=== PATIENT | male | born 1950 | race Caucasian/White ===

== ENCOUNTER 2018-09-27 09:00 | Inpatient (IN) | payer MEDICARE, OTHER ==
[2018-09-27] MEDS ORDERED: NS 0.9% 1000 ML** 1,000 ML IV ONE (09:29)
--- NOTE | 2018-09-27 09:36 | ED ---
Abdominal Pain/Male - HPI Summary HPI Summary: Patient is a 68-year-old male with history of hypertension presenting to the ED with diffuse abdominal pain which has occurred every day 3 months. He has also been having problems with bowel movements. He states over the past 3 months, he has been needing to take prune juice to have bowel movements. Symptoms improve after having a bowel movement, but only a few hours later will return. He endorses the pain as a "pressure" to the entire abdomen, but usually worse to the right side. Symptoms are not aggravated or alleviated with eating. Denies any blood in the stool. Denies any urinary symptoms including hematuria. He denies any nausea or vomiting. He continues to pass gas. Symptoms have been present 3 months, every day, however intermittent throughout the day. Patient is a 53 year heavy every day 1 pack per day smoker. Denies alcohol use. He states he has not had a PCP for approximately 3 -4 years. He was previously prescribed lisinopril for his HTN, but discontinued taking this. He endorses a 20 pound weight loss over the past 3 months and endorses early satiety. He denies any fevers, sweats, chills. Denies CP, SOB. Denies GARAY, visual changes. - History of Current Complaint Chief Complaint: EDAbdPain Stated Complaint: STOMACH PAIN/VOMITING PER PT Time Seen by Provider: 09/27/18 09:19 Hx Obtained From: Patient Onset/Duration: Gradual Onset Timing: Constant Severity Initially: Moderate Severity Currently: Moderate Pain Intensity: 5 Pain Scale Used: 0-10 Numeric Location: Diffuse Radiates: No Character: Other: - pressure Aggravating Factor(s): Nothing Alleviating Factor(s): Nothing Associated Signs And Symptoms: Positive: Constipation, Decreased Appetite. Negative: Cough, Chest Pain, Blood in Stool, Urinary Symptoms, Vomiting, Diarrhea, Penile Discharge - Risk Factors Testicular Torsion: Negative Cardiac Risk Factors: Hypertension - Allergies/Home Medications Allergies/Adverse Reactions: Allergies Allergy/AdvReac Type Severity Reaction Status Date / Time No Known Allergies Allergy Verified 08/02/12 13:16 Home Medications: Home Medications Ibuprofen [Motrin Ib] 200 mg PO Q4HR PRN 09/27/18 [History Confirmed 09/27/18] PMH/Surg Hx/FS Hx/Imm Hx Previously Healthy: Yes Endocrine/Hematology History: Reports: Hx Diabetes - MILD, ON MEDS Cardiovascular History: Reports: Hx Hypertension - ON MEDS Denies: Other Cardiovascular Problems/Disorders Respiratory History: Denies: Other Respiratory Problems/Disorders GI History: Denies: Other GI Disorders Sensory History: Reports: Hx Contacts or Glasses - GLASSES Denies: Hx Hearing Aid Opthamlomology History: Reports: Hx Contacts or Glasses - GLASSES Neurological History: Denies: Other Neuro Impairments/Disorders - Surgical History Surgery Procedure, Year, and Place: 2008, LEN HERNIA WITH MESH, [facility] Hx Anesthesia Reactions: No - Immunization History Date of Influenza Vaccine: no Hx Pertussis Vaccination: No Immunizations Up to Date: Yes Infectious Disease History: No Infectious Disease History: Denies: Traveled Outside the [place] in Last 30 Days - Social History Occupation: Employed Full-time Lives: Alone Alcohol Use: Occasionally Hx Substance Use: No Substance Use Type: Reports: None Hx Tobacco Use: Yes Smoking Status (MU): Heavy Every Day Tobacco Smoker - 1 ppd Review of Systems Negative: Fever, Chills, Skin Diaphoresis Negative: Dental Pain, Sore Throat Negative: Palpitations, Chest Pain Negative: Shortness Of Breath, Cough Positive: Abdominal Pain - diffuse. Negative: Vomiting, Diarrhea, Nausea, Other - constipation Genitourinary: Negative Positive: no symptoms reported, see HPI Negative: Arthralgia, Myalgia Skin: Negative Negative: Headache, Weakness, Paresthesia, Numbness Psychological: Normal All Other Systems Reviewed And Are Negative: Yes Physical Exam Triage Information Reviewed: Yes Vital Signs On Initial Exam: Initial Vitals Temp Pulse Resp BP Pulse Ox 98.7 F 113 18 136/91 97 09/27/18 09:04 09/27/18 09:04 09/27/18 09:04 09/27/18 09:04 09/27/18 09:04 Vital Signs Reviewed: Yes Appearance: Positive: Well-Appearing, Well-Nourished Skin: Positive: Warm, Skin Color Reflects Adequate Perfusion Head/Face: Positive: Normal Head/Face Inspection Eyes: Positive: EOMI, Conjunctiva Clear Neck: Positive: Supple, No Lymphadenopathy Respiratory/Lung Sounds: Positive: Clear to Auscultation, Breath Sounds Present Cardiovascular: Positive: RRR, Pulses are Symmetrical in both Upper and Lower Extremities Abdomen Description: Positive: Distended, Other: - right sided firm abdomen with mass - possible enlarged liver. Negative: CVA Tenderness (R), CVA Tenderness (L), Hepatomegaly Bowel Sounds: Positive: Hypoactive Musculoskeletal: Positive: Strength/ROM Intact Neurological: Positive: Sensory/Motor Intact, Alert, Oriented to Person Place, Time Psychiatric: Positive: Normal, Affect/Mood Appropriate AVPU Assessment: Alert Diagnostics - Vital Signs Vital Signs Temp Pulse Resp BP Pulse Ox 09/27/18 09:04 98.7 F 113 18 136/91 97 - Laboratory Result Diagrams: 09/27/18 09:40 09/27/18 11:38 Lab Statement: Any lab studies that have been ordered have been reviewed, and results considered in the medical decision making process. Abdominal Pain Male Course/Dx - Course Course Of Treatment: During this patient's course of treatment, he is evaluated for a diffuse "pressure" abdominal pain which is been present intermittently over the past 3 months. He is also complaining of issues with bowel movements. He states he has needed prune juice approximately every day to have a bowel movement. Last BM 2 days ago. He endorses a 20 pound weight loss over the past 3 months. He endorses early satiety and states he has to force himself to eat and drink. Labs are obtained: Bilirubin 10.40, ALT 593, ALP 1466, lipase 525. CT abd/pelvis: IMPRESSION: #. The constellation of findings is consistent with a 4.1 x 4.4 x 4.6 cm pancreatic. carcinoma at the pancreatic head with probable local extension to the second segment of. the duodenum and probable hepatic metastasis. Associated biliary dilatation. #. Hepatic ultrasound is suggested to assess for potential feasibility of. ultrasound- guided liver metastasis biopsy for confirmation. #. Single 1.1 cm short axis enlarged celiac axis level lymph node. US obtained: IMPRESSION: Hypoechoic lesion in the right lobe of liver. Pancreatic mass in the head of the pancreas with dilated extra and intrahepatic ducts and. distended gallbladder. Sludge is noted in the gallbladder. Discussed with Dr. Kenney at 12:15p who agrees to consult. Discussed with Dr. Colmenares who will admit for further evaluation. While in the ED he was given 1 L fluids, declined pain medication. - Diagnoses Differential Diagnosis/HQI/PQRI: Other - Pancreatic cancer, metastatic disease, gallbladder sludge Provider Diagnoses: Pancreatic mass - Provider Notifications Discussed Care Of Patient With: Jose C Colmenares Instructed by Provider To: Admit As Inpatient - Critical Care Time Critical Care Time: 30-74 min Discharge - Sign-Out/Discharge Documenting (check all that apply): Patient Departure Patient Received Moderate/Deep Sedation with Procedure: No - Discharge Plan Condition: Fair Disposition: ADMITTED TO [facility] Referrals: No Primary Care Phys,NOPCP [Primary Care Provider] - - Billing Disposition and Condition Condition: FAIR Disposition: Admitted to [facility]
[2018-09-27 10:03] LABS: INR 1.1 (0.77-1.02)
[2018-09-27 10:10] LABS: ABS Basophils 0.1 10^3/ul (0-0.2); ABS Eosinophils 0 10^3/ul (0-0.6); ABS Monocytes 0.8 10^3/ul (0-0.8); ABS Neutrophils 10.6 10^3/ul (1.5-7.7); ABS Nucleated RBC 0 10^3/ul; Eosinophil % 0.4 %; Hematocrit 45 % (36-46); Hemoglobin 15.1 g/dL (14.0-18.0); Lymphocyte % 8.1 %; Mean Corpuscular HGB Conc 34 g/dL (31-36); Mean Corpuscular Hemoglobin 30 pg (27-31); Mean Corpuscular Volume 89 fL (80-94); Mean Platelet Volume 9.1 fL (7.4-10.4); Nucleated Red Blood Cells % 0; Platelet Count 315 10^3/uL (150-450); Red Blood Count 4.98 10^6 /uL (4.18-5.48); Red Cell Distribution Width 14 % (10.5-15); White Blood Count 12.4 10^3/uL (3.5-10.8)
[2018-09-27 10:16] LABS: Albumin 3.5 g/dL (3.2-5.2); Albumin/Globulin Ratio 1.1 (1-3); Alkaline Phosphatase 1466 U/L (34-104); BUN/Creatinine Ratio 15.8 (8-20); Blood Urea Nitrogen 12 mg/dL (6-24); C Reactive Protein 58.91 mg/L (<8.01); CO2 Carbon Dioxide 20 mmol/L (22-32); Calcium 9.6 mg/dL (8.6-10.3); Chloride 95 mmol/L (101-111); EGFR African American 122.7 (>60); EGFR Non-African American 101.4 (>60); Globulin 3.3 g/dL (2-4); Glucose 241 mg/dL (70-100); Magnesium 1.8 mg/dL (1.9-2.7); Sodium 130 mmol/L (135-145); Total Protein 6.8 g/dL (6.4-8.9)
[2018-09-27 10:32] LABS: ALT 593 U/L (7-52)
[2018-09-27 10:57] LABS: Anion Gap 15 mmol/L (2-11)
[2018-09-27] MEDS ORDERED: Iodixanol* (CONTRAST) 320 MG/ML 100 ML SDV IV ONE (11:14)
[2018-09-27 12:09] LABS: Urine Appearance Clear; Urine Bacteria Absent (Absent); Urine Bilirubin 1+ (Negative); Urine Blood 1+ (Negative); Urine Color Amber; Urine Glucose 3+(>=500 mg/dL) (Negative); Urine Ketones 2+ (Negative); Urine Nitrite Negative (Negative); Urine Protein 1+(30 mg/dL) (Negative); Urine Red Blood Cell 1+(3-5/hpf) (Absent); Urine Specific Gravity 1.045 (1.010-1.030); Urine Urobilinogen Negative (Negative); Urine White Blood Cell Absent (Absent)
[2018-09-27] MEDS ORDERED: Enoxaparin(*) 40 MG/0.4 ML SYR SUBCUT SCH (16:00)
[2018-09-27] MEDS ORDERED: oxyCODONE TAB* 5 MG TAB PO PRN (16:00)
[2018-09-27] MEDS ORDERED: fentaNYL* 50 MCG/ML 2 ML VIAL (100 MCG VIAL) ONE (16:21)
[2018-09-27] MEDS ORDERED: Naloxone* 0.4 MG/ML 1 ML VIAL ONE (16:21)
--- NOTE | 2018-09-27 18:25 | HP ---
ADMISSION HISTORY AND PHYSICAL: DATE OF ADMISSION: 09/27/18 PRIMARY CARE PROVIDER: None. He has not had a primary care provider in over 5 years. HEALTHCARE PROXY: He identifies his , Lois. CODE STATUS: Full. SOURCE OF INFORMATION: History obtained from interview with the patient. RELIABILITY: Fair. CHIEF COMPLAINT: Abdominal pain. HISTORY OF PRESENT ILLNESS: This is a 68-year-old man with poor medical followup, but in usual state of health until approximately 4 weeks prior to presentation, started to develop abdominal pain associated with constipation for which he had been taking prune juice with some help. He noted that his abdomen "ached." He began to develop emesis with eating that did not happen every time, but was becoming more frequent prior to presentation, not associated with hematemesis, hematochezia, or melena. He has noticed decline in his weight, but he does not weigh himself at home, so it has been subjective. He denies any night sweats, but has endorsed low energy. He endorses subjective fevers over the last several days. No cough. No headache, changes in vision, lightheadedness, loss of consciousness, shortness of breath, or chest pain. PAST MEDICAL HISTORY: Includes hypertension, prediabetes, chronic lower back pain. PAST SURGICAL HISTORY: He has had bilateral inguinal hernia repairs and an umbilical hernia repair. MEDICATIONS: No medications. ALLERGIES: No known drug allergies. FAMILY HISTORY: Notable for CVA in his father. Otherwise, no family history of cancer. 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 He has about [id number] history of smoking. Drinks about 6 alcoholic drinks per week. REVIEW OF SYSTEMS: Otherwise, all other systems reviewed and negative. PHYSICAL EXAMINATION GENERAL: Thin appearing man, older than stated age, in no apparent distress. VITAL SIGNS: 136/78, heart rate is 106, respiratory rate is 17, he is 98% on room air, T-max is 98.7. HEENT: His oropharynx is clear. His sclerae are slightly icteric. He is icteric under his tongue as well as generally yellowed skin. NECK: He has no supraclavicular, cervical, or axillary lymphadenopathy. LUNGS: Clear. HEART: He has regular rate and rhythm. ABDOMEN: Soft. He has some tenderness with deep palpation in the epigastrium. No masses appreciated. EXTREMITIES: Warm and well perfused. He has less than 2 seconds cap refill. He has no clubbing, cyanosis, or edema. NEUROLOGIC: He is alert and oriented x3. His cranial nerves II through XII are intact. PSYCHIATRIC: He has no apparent anxiety, agitation, or depression. DIAGNOSTIC STUDIES/LAB DATA: Pertinent labs are reviewed, notable for a sodium of 130, bicarb is 20, anion gap is 15, glucose is 241. Total bilirubin is 10.4, ALT is 593, AST test not performed, alk phos is 1466. CRP is 58. Lipase is 525. White blood cell count is 12.4, hemoglobin 15.1. Data reviewed. CT abdomen and pelvis, impression: Constellation of findings consistent with a 4.1 x 4.4 x 4.6 pancreatic carcinoma at the pancreatic head with probable local extension to the second segment of the duodenum and probable hepatic metastases associated with biliary dilatation. There is a single short axis and large celiac axis level lymph node. The pancreatic duct is dilated to 5 mm. There is right intra and extrahepatic biliary duct dilatation. ASSESSMENT AND PLAN: A 68-year-old man presenting with abdominal pain, jaundice and CT evidence concerning for metastatic pancreatic cancer. 1. Metastatic pancreatic cancer associated with elevated LFTs, dehydration. Oncology consultation as well as discussed with Dr. Villagran, who is reviewing hepatic ultrasound, plan on potential biopsy tomorrow. Hydrate with normal saline. Repeat LFTs in the morning to evaluate for trend of total bilirubin. Lovenox for DVT prophylaxis. 2. Hyperglycemia. Suspect in the setting of pancreatic cancer. Trend fingerstick glucose. Add insulin if necessary. 3. Dehydration in the setting of poor oral intake. Normal saline as indicated above. 4. History of hypertension. Relatively normotensive now. We will not start new medication. 5. DVT prophylaxis: Heparin subcu prior to potential biopsy and transition to Lovenox after. [id number]/[facility] #: [id number] [facility]
[2018-09-27] MEDS: NS 0.9% 1000 ML** 1,000 ML IV SCH (19:38)
[2018-09-27] MEDS: Docusate CAP* 100 MG PO SCH (21:11)
[2018-09-27] MEDS: Ondansetron INJ* 2 MG/ML VIAL IV PRN (21:11)
[2018-09-27] MEDS: Heparin VIAL(*) 5000 UNITS/ML VIAL (FIVE THOUSAND) SUBCUT SCH (21:12)
--- NOTE | 2018-09-28 01:40 | CONS ---
MEDICAL ONCOLOGY CONSULTATION NOTE: DATE OF CONSULT: 09/27/18 REASON FOR CONSULT: Pancreatic mass. HISTORY OF PRESENT ILLNESS: Mr. Mistry is a 68-year-old male who has not had a primary care physician for over 5 years. He previously was seen at [facility], but has not had a regular physician since Dr. Vivek Schwab left [facility]. He reports that he developed a back pain, which he felt was a slip disk after injuring his back in late April 2018. He took increasing doses of ibuprofen for this for many months. He felt that it did help his pain some-what, but he also then developed some heartburn and reflux without the pain being fully resolved. He stopped taking the ibuprofen approximately 2 to 3 weeks ago. He developed episodes of nausea and vomiting occasionally about 2 to 3 weeks ago , but is able to keep most meals down if he ate light foods like pasta or mashed potatoes. He developed some constipation which was helped by prune juice and also he needed to continue taking this for his bowels to continue to function properly. 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 Over the past several weeks, he has developed increasing abdominal pain which interfered with sleep, also had a dry mouth, and more recently had become dizzy and lightheaded. He has had a significant weight loss with his jeans to currently falling down, this has occurred over the past 3 to 4 months. His weight was previously 195 pounds and is now down to 167 for almost a 30- pound weight loss. He has not had any hematemesis, hematochezia, or melena. He has not had any fevers or sweats or chills. He presented to the emergency room due to ongoing abdominal pain and the nausea and vomiting. PAST MEDICAL HISTORY: Hypertension, elevated blood sugars, chronic low back pain, status post bilateral inguinal hernias, status post umbilical hernia repair. Status post brief hospitalization as a teenager with a kidney injury. No other hospitalizations or surgeries. MEDICATIONS: None since he stopped the ibuprofen. ALLERGIES: None. FAMILY HISTORY: Father with CVA. No family history of cancer in any biological relatives. His adopted son has cancer for which he is current being seen at [facility]. SOCIAL HISTORY: The patient lives with his , Lois. 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 55-pack year smoking history, 1 pack per day from teens until the present time. Alcohol of 6 drinks per week, never heavier. REVIEW OF SYSTEMS: Weight loss as discussed above. No significant respiratory symptoms. No significant neurologic symptoms. Ongoing back pain without other symptoms of arthritic or bony complaints. No significant urinary symptoms. Review of systems otherwise negative except as discussed above. PHYSICAL EXAM: A 68-year-old male in no acute distress, appearing his stated age. Vital Signs: Blood pressure 136/78, pulse 106, O2 saturation 98% on room air, afebrile. HEENT: PERRL. EOMI. Icteric sclerae. Icterus also in the mouth. No palpable cervical, supraclavicular, or axillary adenopathy. Lungs: Clear. Heart: Regular rate and rhythm without murmurs, rubs, or gallops. Abdomen: Soft, mild tenderness in the right upper quadrant and in the epigastrium. No guarding or rebound. No masses or organomegaly. Extremities: No clubbing, cyanosis, or edema. Back: No CVA or spinal tenderness. Neurologic Exam: The patient is alert and oriented x3. Cranial nerves III through XII are intact. Motor is 5/5 throughout. DIAGNOSTIC STUDIES/LAB DATA: Electrolytes: Sodium 130, potassium not obtained, chloride 95, bicarb 20, BUN 12, creatinine 0.7. LFTs are elevated with a total bilirubin of 10.4, ALT of 593, alk phos 1466, albumin 3.5. INR is at 1.10. Lipase is elevated at 582 with an upper limit normal of 82. CT scan of the abdomen and pelvis obtained on 09/27/18 reveals multiple small liver lesions, largest up to 1.8 cm in the dome of the liver, several other smaller hypodense lesions are also noted. There is a 4.1 x 4.1 x 4.6 cm hypodense hypoechoic mass in the head of the pancreas with associated atrophy of the remainder of the pancreas and ductal dilatation of the pancreatic duct at 5 mm. There is intra and extrahepatic ductal dilatation. Gallbladder is modestly distended. Adenopathy, largest lymph node is 1.1 cm in short axis in the celiac axis. No additional enlarged lymph nodes are noted. This pattern is certainly highly suspicious for metastatic pancreatic carcinoma to the liver. Ultrasound was obtained for liver biopsy. On this ultrasound, biopsies performed in uncomplicated manner of an anterior right lobe of the liver lesion. IMPRESSION: A 68-year-old male with significant weight loss, increasing abdominal pain, episodes of nausea and vomiting and now found to be significantly jaundiced with biliary ductal dilatation, liver lesions, and a 4 cm pancreatic mass obstructing the bile duct so. This is highly suspicious for metastatic adenocarcinoma of the pancreas. Biopsy was obtained today and is pending. The patient will require relief of the biliary ductal dilatation and should have a consultation with GI for a question of an ERCP. Assuming his liver function tests improve with an improvement in his bilirubin and if this turns out to be metastatic adenocarcinoma of the pancreas, he will then be a candidate for chemo-therapy in a palliative sense. This has already been explained to the patient that this would not be curative disease if this metastatic pancreatic carcinoma proven on liver biopsy. He could, however, have palliation of symptoms and prolongation of life, improvement of quality of life with chemotherapy. Although he is 68, he seems to be in otherwise good shape and possibility of using either FOLFIRINOX or Gemzar and Abraxane would be appropriate. Further recommendations will follow once the patient has had results return from his liver biopsy. In the interim, CA 19-9 tumor marker is warranted and will be ordered later today. [id number]/[facility] #: [id number] [facility]
[2018-09-28] MEDS: NS 0.9% 1000 ML** 1,000 ML IV SCH ×2 (02:32→09:41)
[2018-09-28] MEDS: Heparin VIAL(*) 5000 UNITS/ML VIAL (FIVE THOUSAND) SUBCUT SCH ×3 (05:43→21:04)
[2018-09-28 07:13] LABS: ABS Basophils 0 10^3/ul (0-0.2); ABS Eosinophils 0 10^3/ul (0-0.6); ABS Lymphocytes 0.8 10^3/ul (1.0-4.8); ABS Monocytes 0.9 10^3/ul (0-0.8); ABS Neutrophils 9.7 10^3/ul (1.5-7.7); ABS Nucleated RBC 0 10^3/ul; Eosinophil % 0.1 %; Hematocrit 40 % (36-46); Hemoglobin 13.4 g/dL (14.0-18.0); Lymphocyte % 6.7 %; Mean Corpuscular HGB Conc 33 g/dL (31-36); Mean Corpuscular Hemoglobin 30 pg (27-31); Mean Corpuscular Volume 89 fL (80-94); Mean Platelet Volume 9.3 fL (7.4-10.4); Nucleated Red Blood Cells % 0.2; Platelet Count 288 10^3/uL (150-450); Red Blood Count 4.52 10^6 /uL (4.18-5.48); Red Cell Distribution Width 14 % (10.5-15); White Blood Count 11.5 10^3/uL (3.5-10.8)
[2018-09-28 07:18] LABS: INR 1.28 (0.77-1.02)
[2018-09-28 07:22] LABS: Albumin 2.9 g/dL (3.2-5.2); BUN/Creatinine Ratio 19.7 (8-20); Calcium 8.8 mg/dL (8.6-10.3); EGFR African American 158.1 (>60); EGFR Non-African American 130.7 (>60); Globulin 2.9 g/dL (2-4); Indirect Bilirubin 2.2 mg/dL (0.3-1.0); Magnesium 1.7 mg/dL (1.9-2.7); Potassium 3.4 mmol/L (3.5-5.0); Total Bilirubin 8.6 mg/dL (0.2-1.0); Total Protein 5.8 g/dL (6.4-8.9)
[2018-09-28] MEDS ORDERED: Potassium Chlor TAB* 20 MEQ TAB.ER PO ONE (07:58)
[2018-09-28] MEDS: Docusate CAP* 100 MG PO SCH ×2 (09:42→20:13)
[2018-09-28] MEDS: Ondansetron INJ* 2 MG/ML VIAL IV PRN (12:44)
--- NOTE | 2018-09-28 12:59 | PN ---
Progress Note - Progress Note Date of Service: 09/28/18 SOAP: Subjective: [Reports that he still has intermittent aching abdominal pain. Some nausea, no vomiting. Reports some reflux which he blames on taking a laxative. ] Objective: [ Vital Signs Temp Pulse Resp BP Pulse Ox 99.1 F 86 16 146/74 97 09/28/18 11:29 09/28/18 11:29 09/28/18 11:29 09/28/18 11:29 09/28/18 11:29 Docusate Sodium (Colace Cap*) 100 mg PO BID [facility] Last Admin: 09/28/18 09:42 Dose: 100 mg Heparin Sodium (Porcine) (Heparin Vial(*)) 5,000 units SUBCUT Q8HR [facility] Last Admin: 09/28/18 05:43 Dose: 5,000 units Sodium Chloride (Ns 0.9% 1000 Ml) 1,000 mls @ 150 mls/hr IV PER RATE [facility] Stop: 09/29/18 22:39 Last Admin: 09/28/18 09:41 Dose: 150 mls/hr Ondansetron HCl (Zofran Inj*) 4 mg IV Q4H PRN PRN Reason: NAUSEA Last Admin: 09/28/18 12:44 Dose: 4 mg Oxycodone HCl (Roxycodone Tab*) 5 mg PO Q4H PRN PRN Reason: PAIN Laboratory Results - last 24 hr 09/27/18 09/28/18 09/28/18 18:07 05:38 06:16 WBC 11.5 H RBC 4.52 Hgb 13.4 L Hct 40 MCV 89 MCH 30 MCHC 33 RDW 14 Plt Count 288 MPV 9.3 Neut % (Auto) 84.8 Lymph % (Auto) 6.7 [place] % (Auto) 8.0 Eos % (Auto) 0.1 Baso % (Auto) 0.4 Absolute Neuts (auto) 9.7 H Absolute Lymphs (auto) 0.8 L Absolute Monos (auto) 0.9 H Absolute Eos (auto) 0 Absolute Basos (auto) 0 Absolute Nucleated RBC 0 Nucleated RBC % 0.2 INR (Anticoag Therapy) Sodium Potassium Chloride Carbon Dioxide Anion Gap BUN Creatinine Est GFR ( Amer) Est GFR (Non-Af Amer) BUN/Creatinine Ratio Glucose POC Glucose (mg/dL) 163 H 186 H Calcium Magnesium Total Bilirubin Direct Bilirubin Indirect Bilirubin AST ALT Alkaline Phosphatase Total Protein Albumin Globulin Albumin/Globulin Ratio 09/28/18 09/28/18 09/28/18 06:16 06:16 07:57 WBC RBC Hgb Hct MCV MCH MCHC RDW Plt Count MPV Neut % (Auto) Lymph % (Auto) [place] % (Auto) Eos % (Auto) Baso % (Auto) Absolute Neuts (auto) Absolute Lymphs (auto) Absolute Monos (auto) Absolute Eos (auto) Absolute Basos (auto) Absolute Nucleated RBC Nucleated RBC % INR (Anticoag Therapy) 1.28 H Sodium 131 L Potassium 3.4 L Chloride 100 L Carbon Dioxide 19 L Anion Gap 12 H BUN 12 Creatinine 0.61 L Est GFR ( Amer) 158.1 Est GFR (Non-Af Amer) 130.7 BUN/Creatinine Ratio 19.7 Glucose 173 H POC Glucose (mg/dL) 173 H Calcium 8.8 Magnesium 1.7 L Total Bilirubin 8.60 H D Direct Bilirubin 6.40 H Indirect Bilirubin 2.2 H AST 402 H ALT 463 H Alkaline Phosphatase 1298 H Total Protein 5.8 L Albumin 2.9 L Globulin 2.9 Albumin/Globulin Ratio 1.0 09/28/18 11:53 WBC RBC Hgb Hct MCV MCH MCHC RDW Plt Count MPV Neut % (Auto) Lymph % (Auto) [place] % (Auto) Eos % (Auto) Baso % (Auto) Absolute Neuts (auto) Absolute Lymphs (auto) Absolute Monos (auto) Absolute Eos (auto) Absolute Basos (auto) Absolute Nucleated RBC Nucleated RBC % INR (Anticoag Therapy) Sodium Potassium Chloride Carbon Dioxide Anion Gap BUN Creatinine Est GFR ( Amer) Est GFR (Non-Af Amer) BUN/Creatinine Ratio Glucose POC Glucose (mg/dL) 174 H Calcium Magnesium Total Bilirubin Direct Bilirubin Indirect Bilirubin AST ALT Alkaline Phosphatase Total Protein Albumin Globulin Albumin/Globulin Ratio Exam: Gen: Relatively well appearing 68 yo male in NAD, some smell of urine Eyes: mild icterus Skin: mild jaundice] Assessment: [68 yo male admitted with abd pain and jaundice with evidence of new metastatic pancreatic cancer, biopsy pending.] Plan: [1. Suspected pancreatic CA - appears metastatic based on imaging findings - would likely benefit from ERCP with biliary stent placement, GI consult pending - biopsy results pending Dispo: per hospitalist group, would benefit from ERCP this admission if possible. Will coordinate further outpatient oncology follow up ]
--- NOTE | 2018-09-28 14:19 | CONS ---
GASTROENTEROLOGY CONSULT: DATE OF CONSULT: 09/28/18 REFERRING PHYSICIANS: Dr. Kristofer Kenney, Dr. Yayo Donis. REASON FOR CONSULTATION: Jaundice HISTORY: This 68-year-old man has had a month of increasing abdominal pain and some sporadic vomiting. He has lost some weight. As he has not had a regular physician in a number of years, he came to the emergency room directly. In the ER, he was found to be jaundiced, though the rest of the exam negative and vital signs normal. His bilirubin was 10.4, ALT 593 alk phos over a 1200. CT scan showed a pancreatic head mass and mets to the liver. A CT-guided biopsy was arranged that very day. PAST MEDICAL HISTORY: 1. Hypertension. 2. Chronic low back pain. 3. Status post bilateral inguinal hernia repairs, 2012. 4. Status post umbilical hernia repair. 5. Chronic smoker. MEDICATIONS: Ibuprofen up until a month ago when he stopped because of burning in his stomach. ALLERGIES: None. FAMILY HISTORY: His father of a CVA. There is no family history of cancer that he is aware of. SOCIAL HISTORY: He is and worked for the [employer] for 21 years and then for [employer]. He has a 55- pack-year smoking history and still smokes. He has 1 alcoholic drink per day. REVIEW OF SYSTEMS: He denies any history of cardiac problems or pulmonary disease overtly. No history of syncope, seizures, prior jaundice, hepatitis, acute pancreatitis. He has never had a colonoscopy. There is no history of medical renal disease. PHYSICAL EXAM: He is a jaundiced, slender man with a gravely smoker's voice, in no distress. HEENT exam is otherwise unremarkable. Lungs show diminished breath sounds, but are symmetric. Heart sounds are normal. The abdomen is symmetric with normal bowel sounds, soft, and nontender. There is iodoform in the right upper quadrant from the liver biopsy. Rectal: Deferred. Extremities show no edema. DIAGNOSTIC STUDIES/LAB DATA: CBC on admission, hemoglobin 15.1, hematocrit 45, MCV 89, platelets 315. CT scan - reviewed with the radiologist and there is an air accumulation in the lumen of the duodenum and possibly a duodenal diverticulum. 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 Tissue type is most likely adenocarcinoma, but is yet to be established. Malignancy is yet to be absolutely confirmed. At the moment , histology from the needle is pending. An ERCP will be arranged and a stent hopefully placed. The duodenal wall infiltration predicts a more difficult than average situation. Informed consent was obtained and a detailed discussion assisted by a diagram. [id number]/[facility] #: [id number] KACIE
--- NOTE | 2018-09-28 15:35 | PN ---
Subjective Date of Service: 09/28/18 Interval History: Seen this am, nausea that was improved with zofran. Abdominal discomfort described as his belly feels hollow Objective Active Medications: Docusate Sodium (Colace Cap*) 100 mg PO BID [facility] Last Admin: 09/28/18 09:42 Dose: 100 mg Heparin Sodium (Porcine) (Heparin Vial(*)) 5,000 units SUBCUT Q8HR [facility] Last Admin: 09/28/18 14:21 Dose: Not Given Sodium Chloride (Ns 0.9% 1000 Ml) 1,000 mls @ 150 mls/hr IV PER RATE [facility] Stop: 09/29/18 22:39 Last Admin: 09/28/18 09:41 Dose: 150 mls/hr Ondansetron HCl (Zofran Inj*) 4 mg IV Q4H PRN PRN Reason: NAUSEA Last Admin: 09/28/18 12:44 Dose: 4 mg Oxycodone HCl (Roxycodone Tab*) 5 mg PO Q4H PRN PRN Reason: PAIN Vital Signs - 8 hr 09/28/18 09/28/18 09/28/18 07:39 08:00 11:29 Temperature 99.5 F 99.1 F Pulse Rate 96 86 Respiratory 16 18 16 Rate Blood Pressure 121/50 146/74 (mmHg) O2 Sat by Pulse 97 97 Oximetry 09/28/18 13:45 Temperature 97.1 F Pulse Rate 83 Respiratory 19 Rate Blood Pressure 140/65 (mmHg) O2 Sat by Pulse 98 Oximetry Oxygen Devices in Use Now: None Appearance: sitting up in bed, NAD Eyes: PERRLA, - - mildly icteric pupils Ears/Nose/Mouth/Throat: NL Teeth, Lips, Gums, Clear Oropharnyx Neck: NL Appearance and Movements; NL JVP, Trachea Midline Respiratory: Symmetrical Chest Expansion and Respiratory Effort, Clear to Auscultation Cardiovascular: RRR Abdominal: NL Sounds; No Tenderness; No Distention Extremities: No Edema Skin: - - mild jaundice Neurological: Alert and Oriented x 3 - Nutrition: Malnutrition Diagnosis/Plan Malnutrition Assessment by Registered Dietitian: Malnutrition Assessment Clinical Characteristics Chronic,Severe Malnutrition Assessment: - 18% wt loss x 3 months Criteria - Moderate temporal muscle wasting - < 75% estimated energy expenditure > 1 month Malnutrition Assessment: Will follow ability to advance diet, and offer Interventions an oral nutritional supplement. Malnutrition Assessment: Goals 1. Intake will improve to promote repletion of lean body mass and maintain hydration w/o additional wt loss. Result Diagrams: 09/28/18 06:16 09/28/18 06:16 Assess/Plan/Problems-Billing Assessment: 68 M pw abdominal pain found with suspected metastatic pancreatic cancer with biliary obstruction - Patient Problems (1) Biliary obstruction Comment: Appreciate GI support with plan for ERCP tonight (2) Pancreas cancer Comment: Appreciate oncology assistance Pt to follow with their service when stable for discharge (3) Hyperglycemia Comment: check hba1c can consider addition of metformin on discharge but benefit may be limited in setting of fdc poor prognosis (4) DVT prophylaxis Comment: heparin SQ but held this afternoon prior to ERCP
[2018-09-28] MEDS ORDERED: Midazolam* 1 MG/ML 5 ML VIAL (5 MG) ONE (16:56)
[2018-09-28] MEDS ORDERED: fentaNYL* 50 MCG/ML 2 ML VIAL (100 MCG VIAL) ONE (16:56)
[2018-09-28] MEDS ORDERED: Piperacillin/Tazobac ADVAN(*) 3.375 GM in NS 0.9% 100 ML* 100 ML IVPB ONE (17:32)
[2018-09-28] MEDS ORDERED: Piperacillin/Tazobactam VIAL*) 3.375 GM VIAL (COMPD & OVERRIDE) IVPB ONE (17:35)
[2018-09-28] MEDS ORDERED: Ondansetron INJ* 2 MG/ML VIAL ONE (18:25)
[2018-09-28] MEDS ORDERED: DiMENhydriNATE IV* 50 MG/ML VIAL ONE (18:25)
[2018-09-28] MEDS ORDERED: Succinylcholine* 20 MG/ML 10 ML VIAL ONE (18:25)
[2018-09-28] MEDS ORDERED: Propofol* 10 MG/ML 20 ML BTL ONE (18:25)
[2018-09-28] MEDS ORDERED: Dexamethasone IV* 4 MG/ML 1 ML (4 MG) ONE (18:25)
[2018-09-28] MEDS ORDERED: Ketorolac INJ* 30 MG/ML 1 ML VIAL ONE (18:25)
[2018-09-28] MEDS ORDERED: oxyCODONE TAB* 5 MG TAB PO PRN (18:31)
[2018-09-28] MEDS ORDERED: HYDROmorphone INJ1* 1 MG/ML SYRINGE IV PRN (18:31)
[2018-09-28] MEDS ORDERED: DiMENhydriNATE IV* 50 MG/ML VIAL IV PUSH PRN (18:31)
--- NOTE | 2018-09-29 00:11 | PRO ---
DATE: 09/28/18 - ROOM #415 CONSULTING PHYSICIAN: Dr. Kristofer Kenney. * PROCEDURE: ERCP with pancreatic duct only and biopsy of duodenal wall mass, second to third portion. INDICATION: This 68-year-old man had a month of abdominal pain and in the emergency room was found to be jaundiced with elevated LFTs and on CT scan, hepatic masses and pancreatic head mass. There were also signs of invasion of the duodenal wall. Informed consent was obtained with an opportunity for questions, special concerns, and a diagram was used to explain. ENDOSCOPIST: Dr. Gaines. ANESTHESIA: Dr. Shultz. FINDINGS: He is a chronically ill-appearing man with a smoker's voice and somewhat of a barrel chest. He was positioned in the semi-prone position, elevated at 20 degrees and later modified to 45 degrees. He tolerated the exam well. ERCP: Esophagus - 20% views were normal. Stomach - 40% of views of fundus and of the distal antrum showed a diffuse wispy polka dot gastritis. The pylorus was normal. There was a moderate amount of gastric retained material Duodenum - at the apex of the bulb, erythematous firm deformity was noted on the medial wall. It was extensive with some rigidity and erosion, ulceration in the mid portion. There was a deep necrotic cavity in the middle of this area 3-4 cm proximal to the papilla. No bile was seen coming from the cavity. Papilla - appeared normal. The scope was restricted from getting below the papilla and instruments had to approach it from somewhat of a 45-degree angle as opposed to trying to approach from 10 to 15 degrees underneath. Multiple attempts with a standard sphincterotome bowed in various configurations and approaching in different orientations and/or with a wire entered only the pancreatic duct, which was cannulated up to the mid portion. Occasional initial passages seemed to go towards the common bile duct, but a free cannulation was never obtained. A cannula with a taper tip was also used. During withdrawal, the duodenal mass was biopsied. IMPRESSION: 1. Gastritis. 2. Mild gastric retention. 3. Duodenal wall mass with necrotic cavity. 4. Biliary obstruction - the stent could not be placed and decision have to be made between referral to a center where PTC is available or double bypass with possible feeding jejunostomy. A surgery consult is appropriate [id number]/[facility] #: [id number] [facility]
[2018-09-29] MEDS: Heparin VIAL(*) 5000 UNITS/ML VIAL (FIVE THOUSAND) SUBCUT SCH ×3 (05:22→21:17)
[2018-09-29 07:24] LABS: ABS Basophils 0 10^3/ul (0-0.2); ABS Eosinophils 0 10^3/ul (0-0.6); ABS Lymphocytes 0.9 10^3/ul (1.0-4.8); ABS Monocytes 0.1 10^3/ul (0-0.8); ABS Neutrophils 7.3 10^3/ul (1.5-7.7); ABS Nucleated RBC 0 10^3/ul; Eosinophil % 0 %; Hematocrit 41 % (36-46); Hemoglobin 13.7 g/dL (14.0-18.0); Lymphocyte % 10.6 %; Mean Corpuscular HGB Conc 33 g/dL (31-36); Mean Corpuscular Hemoglobin 30 pg (27-31); Mean Corpuscular Volume 90 fL (80-94); Mean Platelet Volume 9.4 fL (7.4-10.4); Nucleated Red Blood Cells % 0; Platelet Count 304 10^3/uL (150-450); Red Cell Distribution Width 14 % (10.5-15); White Blood Count 8.3 10^3/uL (3.5-10.8)
[2018-09-29 07:44] LABS: Albumin 2.7 g/dL (3.2-5.2); BUN/Creatinine Ratio 25.9 (8-20); Calcium 8.9 mg/dL (8.6-10.3); EGFR African American 167.6 (>60); EGFR Non-African American 138.5 (>60); Globulin 2.8 g/dL (2-4); Indirect Bilirubin 2.1 mg/dL (0.3-1.0); Potassium 3.9 mmol/L (3.5-5.0); Total Bilirubin 7.9 mg/dL (0.2-1.0); Total Protein 5.5 g/dL (6.4-8.9)
[2018-09-29 08:02] LABS: Magnesium 1.9 mg/dL (1.9-2.7)
--- NOTE | 2018-09-29 08:11 | PN ---
Subjective Date of Service: 09/29/18 Interval History: Pt s/p ERCP last night but unable to place stent, suggestion for PTC vs double bypass. Pt denies abdominal pain, nausea. Pt son treated at [facility], Pt brother (pharmacology) and niece (physician) also in [place]. Pt wanting further interventions at [facility]. Afebrile, no acute events. Bili trending down slightly. Objective Active Medications: Docusate Sodium (Colace Cap*) 100 mg PO BID [facility] Last Admin: 09/28/18 20:13 Dose: Not Given Heparin Sodium (Porcine) (Heparin Vial(*)) 5,000 units SUBCUT Q8HR [facility] Last Admin: 09/29/18 05:22 Dose: 5,000 units Sodium Chloride (Ns 0.9% 1000 Ml) 1,000 mls @ 150 mls/hr IV PER RATE [facility] Stop: 09/29/18 22:39 Last Admin: 09/28/18 09:41 Dose: 150 mls/hr Ondansetron HCl (Zofran Inj*) 4 mg IV Q4H PRN PRN Reason: NAUSEA Last Admin: 09/28/18 12:44 Dose: 4 mg Oxycodone HCl (Roxycodone Tab*) 5 mg PO Q4H PRN PRN Reason: PAIN Vital Signs - 8 hr 09/29/18 09/29/18 09/29/18 00:44 03:26 06:54 Temperature 98.3 F 98.3 F 98.3 F Pulse Rate 73 80 81 Respiratory 20 18 18 Rate Blood Pressure 115/45 102/46 138/65 (mmHg) O2 Sat by Pulse 98 97 97 Oximetry Oxygen Devices in Use Now: None Appearance: NAD Eyes: - - scleral icterus Respiratory: Symmetrical Chest Expansion and Respiratory Effort, Clear to Auscultation Abdominal: NL Sounds; No Tenderness; No Distention, No Hepatosplenomegaly Extremities: No Edema Skin: - - jaundiced. Neurological: Alert and Oriented x 3, NL Sensation - Nutrition: Malnutrition Diagnosis/Plan Malnutrition Assessment by Registered Dietitian: Malnutrition Assessment Clinical Characteristics Chronic,Severe Malnutrition Assessment: - 18% wt loss x 3 months Criteria - Moderate temporal muscle wasting - < 75% estimated energy expenditure > 1 month Malnutrition Assessment: Will follow ability to advance diet, and offer Interventions an oral nutritional supplement. Malnutrition Assessment: Goals 1. Intake will improve to promote repletion of lean body mass and maintain hydration w/o additional wt loss. Result Diagrams: 09/29/18 06:40 09/29/18 06:40 Additional Lab and Data: Laboratory Results - last 24 hr 09/28/18 09/28/18 09/29/18 06:16 21:07 06:40 WBC 8.3 RBC 4.60 Hgb 13.7 L Hct 41 MCV 90 MCH 30 MCHC 33 RDW 14 Plt Count 304 MPV 9.4 Neut % (Auto) 87.4 Lymph % (Auto) 10.6 [place] % (Auto) 1.6 Eos % (Auto) 0 Baso % (Auto) 0.4 Absolute Neuts (auto) 7.3 Absolute Lymphs (auto) 0.9 L Absolute Monos (auto) 0.1 Absolute Eos (auto) 0 Absolute Basos (auto) 0 Absolute Nucleated RBC 0 Nucleated RBC % 0 Sodium Potassium Chloride Carbon Dioxide Anion Gap BUN Creatinine Est GFR ( Amer) Est GFR (Non-Af Amer) BUN/Creatinine Ratio Glucose POC Glucose (mg/dL) 200 H Calcium Magnesium Total Bilirubin Direct Bilirubin Indirect Bilirubin AST ALT Alkaline Phosphatase Total Protein Albumin Globulin Albumin/Globulin Ratio CA 19-9 Antigen 7332 H 09/29/18 09/29/18 09/29/18 06:40 08:15 11:28 WBC RBC Hgb Hct MCV MCH MCHC RDW Plt Count MPV Neut % (Auto) Lymph % (Auto) [place] % (Auto) Eos % (Auto) Baso % (Auto) Absolute Neuts (auto) Absolute Lymphs (auto) Absolute Monos (auto) Absolute Eos (auto) Absolute Basos (auto) Absolute Nucleated RBC Nucleated RBC % Sodium 132 L Potassium 3.9 Chloride 102 Carbon Dioxide 17 L Anion Gap 13 H BUN 15 Creatinine 0.58 L Est GFR ( Amer) 167.6 Est GFR (Non-Af Amer) 138.5 BUN/Creatinine Ratio 25.9 H Glucose 217 H POC Glucose (mg/dL) 215 H 216 H Calcium 8.9 Magnesium 1.9 Total Bilirubin 7.90 H Direct Bilirubin 5.80 H Indirect Bilirubin 2.1 H AST 287 H ALT 376 H Alkaline Phosphatase 1239 H Total Protein 5.5 L Albumin 2.7 L Globulin 2.8 Albumin/Globulin Ratio 1.0 CA 19-9 Antigen 09/29/18 09/29/18 16:57 20:17 WBC RBC Hgb Hct MCV MCH MCHC RDW Plt Count MPV Neut % (Auto) Lymph % (Auto) [place] % (Auto) Eos % (Auto) Baso % (Auto) Absolute Neuts (auto) Absolute Lymphs (auto) Absolute Monos (auto) Absolute Eos (auto) Absolute Basos (auto) Absolute Nucleated RBC Nucleated RBC % Sodium Potassium Chloride Carbon Dioxide Anion Gap BUN Creatinine Est GFR ( Amer) Est GFR (Non-Af Amer) BUN/Creatinine Ratio Glucose POC Glucose (mg/dL) 310 H 359 H Calcium Magnesium Total Bilirubin Direct Bilirubin Indirect Bilirubin AST ALT Alkaline Phosphatase Total Protein Albumin Globulin Albumin/Globulin Ratio CA 19-9 Antigen Assess/Plan/Problems-Billing Assessment: 68 male PMH HTN, smoker p/w abdominal pain and 30lb weight loss in 3 months found pancreatic head adenocarcinoma (poorly differentiated) with liver metastases and biliary obstruction. s/p ERCP (necrotic duodenum invasion) but unable to deploy stent. - Patient Problems (1) Pancreas cancer Current Visit: Yes Status: Acute Comment: Appreciate oncology assistance poorly differentiated adendocarcinoma confirmed on liver biopsy. Options for palliative chemotherapy but would need to relieve biliary obstruction first. Tried to arrange transfer through transfer center to [facility] per patient's wishs. He is unfortunately [id number] insurance [place] (both here AND [facility]). Most likely current plan is discharge 09/30 with outpatient ERCP re- attempt with GI Dr. Mario Lau of [facility] early next week. I had also consulted Dr. Villagran this AM to discuss [facility] option of percutaneous transhepatic choliangogram which he does perform. (2) Biliary obstruction Current Visit: Yes Status: Acute Comment: Appreciate GI support. s/p ERCP but unable to place stent Options include repeat ERCP at [facility] early next week as outpatient vs percutaneous transhepatic cholangiography (Dr. Villagran consulted) vs double bypass suggested (dischussed with Dr. Best but they have not done that surgery for circa 12 years here and recommended transfer to tertiary care center if that was indicated. Of course this would be a very invasive surgery and given his metastatic cancer now confirmed would like be very morbid - could potentially discuss with surgical oncologist Dr. Lalo Benitez at [facility] who we contacted through transfer center. I asked case managment to discuss with patient also which tertiary care facilities would actually be covered by his insurance as some of these options would obviously be very expensive to him out of pocket. Inquired as to whether [facility] might be a better option. (3) DVT prophylaxis Current Visit: Yes Status: Acute Code(s): OSD7280 - SNOMED Code(s): 604111723 Comment: heparin SQ (4) Hyperglycemia Current Visit: Yes Status: Acute Code(s): R73.9 - HYPERGLYCEMIA, UNSPECIFIED SNOMED Code(s): 26740339 Comment: hba1c 13.3. likely in setting of exocrine pancreas function destruction 2/2 large head mass. SSI started still elevated, lantus 10U starting in AM. (5) Smoker Current Visit: Yes Status: Acute Code(s): F17.200 - NICOTINE DEPENDENCE, UNSPECIFIED, UNCOMPLICATED SNOMED Code(s): 83861144 Comment: offer nicotine patch if requests. Status and Disposition: medicine inpatient. Possibly discharge 4/5 if firm biliary obstruction plan can be formalized through [facility].
[2018-09-29] MEDS ORDERED: Dextrose 50% Syringe 50 ML* 25 GM/50 ML SYRINGE IV PUSH PRN (08:15)
[2018-09-29] MEDS: Docusate CAP* 100 MG PO SCH ×2 (09:34→20:26)
[2018-09-29] MEDS: Insulin LISPRO* 1 UNITS UNIT SUBCUT SCH ×3 (13:28→20:26)
--- NOTE | 2018-09-29 14:16 | PN ---
Progress Note - Progress Note Date of Service: 09/29/18 SOAP: Subjective: feels ok overall. abdominal pain better if anything. Objective: Vital Signs Temp Pulse Resp BP Pulse Ox 97.7 F 93 16 147/72 100 09/29/18 10:54 09/29/18 10:54 09/29/18 10:54 09/29/18 10:54 09/29/18 10:54 lying flat in nad perr eomi scleral icterus soft min ttp over midepigastrium no le edema A+O x 3 Laboratory Results - last 24 hr 09/28/18 09/28/18 09/29/18 06:16 21:07 06:40 WBC 8.3 RBC 4.60 Hgb 13.7 L Hct 41 MCV 90 MCH 30 MCHC 33 RDW 14 Plt Count 304 MPV 9.4 Neut % (Auto) 87.4 Lymph % (Auto) 10.6 [place] % (Auto) 1.6 Eos % (Auto) 0 Baso % (Auto) 0.4 Absolute Neuts (auto) 7.3 Absolute Lymphs (auto) 0.9 L Absolute Monos (auto) 0.1 Absolute Eos (auto) 0 Absolute Basos (auto) 0 Absolute Nucleated RBC 0 Nucleated RBC % 0 Sodium Potassium Chloride Carbon Dioxide Anion Gap BUN Creatinine Est GFR ( Amer) Est GFR (Non-Af Amer) BUN/Creatinine Ratio Glucose POC Glucose (mg/dL) 200 H Hemoglobin A1c 13.3 H Calcium Magnesium Total Bilirubin Direct Bilirubin Indirect Bilirubin AST ALT Alkaline Phosphatase Total Protein Albumin Globulin Albumin/Globulin Ratio 09/29/18 09/29/18 09/29/18 06:40 08:15 11:28 WBC RBC Hgb Hct MCV MCH MCHC RDW Plt Count MPV Neut % (Auto) Lymph % (Auto) [place] % (Auto) Eos % (Auto) Baso % (Auto) Absolute Neuts (auto) Absolute Lymphs (auto) Absolute Monos (auto) Absolute Eos (auto) Absolute Basos (auto) Absolute Nucleated RBC Nucleated RBC % Sodium 132 L Potassium 3.9 Chloride 102 Carbon Dioxide 17 L Anion Gap 13 H BUN 15 Creatinine 0.58 L Est GFR ( Amer) 167.6 Est GFR (Non-Af Amer) 138.5 BUN/Creatinine Ratio 25.9 H Glucose 217 H POC Glucose (mg/dL) 215 H 216 H Hemoglobin A1c Calcium 8.9 Magnesium 1.9 Total Bilirubin 7.90 H Direct Bilirubin 5.80 H Indirect Bilirubin 2.1 H AST 287 H ALT 376 H Alkaline Phosphatase 1239 H Total Protein 5.5 L Albumin 2.7 L Globulin 2.8 Albumin/Globulin Ratio 1.0 Dextrose (D50w Syringe 50 Ml*) 12.5 gm IV PUSH .FOR FS < 60 - SS PRN PRN Reason: FS < 60 Docusate Sodium (Colace Cap*) 100 mg PO BID [facility] Last Admin: 09/29/18 09:34 Dose: 100 mg Heparin Sodium (Porcine) (Heparin Vial(*)) 5,000 units SUBCUT Q8HR [facility] Last Admin: 09/29/18 13:28 Dose: 5,000 units Sodium Chloride (Ns 0.9% 1000 Ml) 1,000 mls @ 150 mls/hr IV PER RATE [facility] Stop: 09/29/18 22:39 Last Admin: 09/28/18 09:41 Dose: 150 mls/hr Insulin Human Lispro (Humalog*) 0 units SUBCUT ACHS REPLACED BY [facility]; Protocol Last Admin: 09/29/18 13:28 Dose: 2 units Ondansetron HCl (Zofran Inj*) 4 mg IV Q4H PRN PRN Reason: NAUSEA Last Admin: 09/28/18 12:44 Dose: 4 mg Oxycodone HCl (Roxycodone Tab*) 5 mg PO Q4H PRN PRN Reason: PAIN Assessment: 68 yo M w metastatic pancreatic cancer and biliary obstruction. Unfortunately ERCP was not successful for decompression and drainage, and I completely agree with the recommendation to transfer to a higher level of care to attempt this. He will not be a candidate for palliative therapy for his cancer unless his bilirubin improves. This may also allow for a feeding tube given his duodenal obstruction. Yasir and his family are interested in pursuing options at [facility], which is completely reasonable. He should follow up with Dr. Kenney on discharge from there to discuss treatment options.
[2018-09-30 05:50] LABS: Albumin 2.7 g/dL (3.2-5.2); BUN/Creatinine Ratio 30.5 (8-20); Calcium 8.5 mg/dL (8.6-10.3); EGFR African American 164.3 (>60); EGFR Non-African American 135.8 (>60); Globulin 2.7 g/dL (2-4); Indirect Bilirubin 2.5 mg/dL (0.3-1.0); Potassium 3.4 mmol/L (3.5-5.0); Total Bilirubin 9.2 mg/dL (0.2-1.0); Total Protein 5.4 g/dL (6.4-8.9)
[2018-09-30] MEDS: Heparin VIAL(*) 5000 UNITS/ML VIAL (FIVE THOUSAND) SUBCUT SCH ×2 (06:11→13:27)
[2018-09-30] MEDS ORDERED: Insulin GLARGINE(*) 1 UNITS UNIT SUBCUT SCH (08:00)
[2018-09-30] MEDS: Insulin LISPRO* 1 UNITS UNIT SUBCUT SCH ×2 (09:03→13:26)
[2018-09-30] MEDS: Docusate CAP* 100 MG PO SCH (09:04)
[2018-09-30 11:54] VITALS: BP 131/64
--- NOTE | 2018-09-30 18:15 | DS ---
CC: Dr. Mario Lau, [facility], Gastroenterology; Dr. Lalo Benitez, Surgical Oncology, [facility]; Dr. Kristofer Kenney; Dr. Brenda Bella; [facility], Dr. Scruggs and Dr. Kilpatrick DISCHARGE SUMMARY: DATE OF ADMISSION: 09/27/18 DATE OF DISCHARGE: 09/30/18 ADMITTING PROVIDER: Jose C Colmenares MD PRIMARY CARE PROVIDER: Currently none. He plans to establish with his 's provider, Dr. Brenda Bella. CONSULTING IMAGING TECH: Dr. Gigi Gaines. CONSULTING MILIEU THERAPIST/ONCOLOGIST: Dr. Kristofer Kenney. ATTENDING PHYSICIAN ON DAY OF DISCHARGE: Roldan Kilpatrick MD Refer water safety teacher at [facility]. The patient will be following up with Dr. Mario Lau. CHIEF COMPLIANT: Abdominal pain, intermittent nausea, vomiting, weight loss, and jaundice. 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 HISTORY OF PRESENT ILLNESS/HOSPITAL COURSE: Yasir Mistry is a 68-year-old male with past medical history of a current smoker with 55-pack years and infrequent medical followup. He had not seen a primary care provider in over 5 years. Please see H and P for full details but briefly approximately 4 weeks prior to presentation, he started to develop abdominal pain, constipation, and occasional emesis that was accelerating in frequency, denied any hematemesis, hematochezia, or melena. He notes a decline in his weight subjectively, low energy, had subjective fevers for several days. His [place] workup in [place] [facility] [place] a CT abdomen and pelvis with IV and oral contrast with impression of 1. Constellation of findings consistent with a 4.1 x 4.4 x 4.6 cm pancreatic carcinoma at the pancreatic head with probable local extension to the second segment of the duodenum and probable hepatic metastases. Associated biliary dilatation (both intra and extrahepatic). 2. A single 1.1-cm, short- axis, enlarged celiac axis level lymph node. His initial liver function tests had shown acute abnormalities with a total bilirubin of 10.4, AST that is hemolyzed, ALT 593, alk phos is 1466. His lipase was 525. His INR was 1.1. He had leukocytosis of 12.4. He was initially afebrile, but tachycardic, heart rate 113, meeting SIRS criteria. He had a followup gallbladder ultrasound, which showed a hypoechoic lesion in the right lobe of the liver, pancreatic head mass, dilation of the extra and intrahepatic bile ducts and distended gallbladder, sludge noted in the gallbladder. Right lobe of liver mass was 1.5 x 1[address] Kenney of Hematology/Oncology consulted with the case as well as Dr. Gaines of Gastroenterology. It was clarified that there was a weight loss between 195 to 167 over the last [address] Gaines attempted an ERCP on hospital day #2 and there was noted duodenal wall mass with necrotic cavity, gastritis, and mild gastric retention, multiple attempts at standard sphincterotome and/or with a wire was able to cannulate up to the mid portion of the pancreatic duct, but a free cannulation was never obtained. Cannula with tapered tip was also used. The duodenal mass was biopsied, again the stent was not able to be placed and recommendation was to pursue either a percutaneous transhepatic cholangiography or a surgery consult for consideration of possible double bypass and possible feeding jejunostomy. Dr. Best of Surgery was called and said that a double bypass was not performed at this institution for over a decade, recommended referral to a tertiary care facility such as [facility]. Dr. Villagran of Interventional Radiology was called to entertain possibility of the percutaneous transhepatic cholangiography, which is done at this institution; however, the patient was insistent that any further therapeutic intervention be performed specifically at [facility]. He notably has a son, who was treated there and a brother, who lives in the [facility], who is a retired urban redevelopment specialist. Hospitalist service attempted transfer through [facility]. Notably, he still had evidence of biliary obstruction that slightly improved and then worsened on the day of discharge. Total bilirubin on the day of discharge was 9.2, direct bili 6.7, indirect 2.5; AST 472; ALT 445; alk phos 1204, but he was otherwise hemodynamically stable. He did get 1 dose of Zosyn empirically janet- procedurally for the ERCP. Notably, the patient's insurance, [employer], is out of network for [facility] and therefore they required phone consultation with their financial department and this was performed on the morning of discharge. The plan currently is to pursue an outpatient reattempt at ERCP with interventional water safety teacher, Dr. Mario Lau, on 10/04. They will be calling the patient the day before to arrange specific arrival instruction/timing of this ERCP. They are also attempting to arrange for Medical Oncology consultation. Additional workup included a CA 19-9 antigen of 7332. Notably, his biopsy results have now returned and the liver nodule was poorly differentiated metastatic adenocarcinoma of pancreatic origin. Immunohistochemical stains included PL1 of 0% tumor, 0% lymphocytes; MLH-1 intact; MSH2 intact; MSH6 intact ; PMS2 intact. The duodenal third portion wall biopsy has resulted in invasive adenocarcinoma moderately differentiated with intestinal type. Note, the patient was also hyperglycemic on arrival and his hemoglobin A1c was 13.3. He was initially treated with sliding scale insulin and then titrated up Lantus being recommended 15 units on discharge with initiation of glucose monitoring. DISCHARGE MEDICATIONS: Include: 1. Test strips b.i.d., glucometer kit. 2. Ciprofloxacin 500 mg p.o. b.i.d. for 7 days. 3. Docusate 100 mg p.o. b.i.d. 4. Lantus SoloSTAR pen for 15 units daily. 5. Lancets to use b.i.d. 6. Flagyl 500 mg p.o. t.i.d. for 7 days. 7. Nicotine patch 14 mg/24 hours transdermally daily. 8. Pen needles to be used b.i.d. 9. MiraLAX 17 g p.o. daily p.r.n. Please note these were all new medications. DISCHARGE DIET: Heart healthy, carbohydrate consistent (new). FOLLOWUP: The patient will be called on 10/03/18, with further details about his procedure the next day 10/04/18, the ERCP with Dr. Lau at [facility], in [place], [place]. The patient's retired urban redevelopment specialist brother, Isaac, plans to drive to the [facility] on Wednesday and help transport him to [place]. His phone number is [phone]. The patient has followup arranged with Dr. Kristofer Kenney, local [facility] Hematology/Oncology, on 10/07/18 at 11:50 a.m. He plans to establish his primary care with Dr. Brenda Bella, his 's primary care provider. He has also been given the contact information of the [facility] (Dr. Kilpatrick and Dr. Scruggs) if he is not able to arrange for Dr. Bella's followup in a timely manner to help transition his care safely in our extensivist clinic. Notably, the patient is desiring to pursue further Medical Oncology evaluation at [facility] as well and they will be likely calling him in the coming days with information about that. TIME SPENT ON DISCHARGE: Fifty-five minutes. [id number]/[facility] #: [id number] KACIE
== END 2018-09-30 16:50 | disposition home or self-care (01) | DRG 436 ==
LOC: ED 09:00 → MED 15:49
PROVIDERS: ADMIT Internal Medicine; ATTEND Internal Medicine
PROC: 0DB98ZX Excision of Duodenum, Via Natural or Artificial Opening Endoscopic, Diagnostic (ICD-10-PCS; 2018-09-28)
PROC: 0FJD8ZZ Inspection of Pancreatic Duct, Via Natural or Artificial Opening Endoscopic (ICD-10-PCS; principal; 2018-09-28 17:00)
DX: C25.0 Malignant neoplasm of head of pancreas (principal); C78.7 Secondary malignant neoplasm of liver and intrahepatic bile duct; C78.4 Secondary malignant neoplasm of small intestine; E44.0 Moderate protein-calorie malnutrition; K59.00 Constipation, unspecified; K21.9 Gastro-esophageal reflux disease without esophagitis; R59.0 Localized enlarged lymph nodes; K82.8 Other specified diseases of gallbladder; K29.70 Gastritis, unspecified, without bleeding; I10 Essential (primary) hypertension; G89.29 Other chronic pain; M54.5 Low back pain; E11.65 Type 2 diabetes mellitus with hyperglycemia; E86.0 Dehydration; K86.81 Exocrine pancreatic insufficiency; F17.210 Nicotine dependence, cigarettes, uncomplicated; Z79.4 Long term (current) use of insulin; Z72.89 Other problems related to lifestyle; Z82.3 Family history of stroke; Z68.21 Body mass index [BMI] 21.0-21.9, adult
CPT/HCPCS: 36415; 47000; 74177; 74328; 76705; 76942; 80048; 80053; 80076; 81003; 81015; 83036; 83605; 83690; 83735; 85025; 85610; 86140; 86301; 88172; 88173; 88177; 88305; 88341; 88342; 88360; 99223; 99231; 99232; 99284; A9270-GY; J0330; J1100; J1240; J1644; J1885; J2250; J2310; J2405; J2543; J2704; J3010; Q9967